=== PATIENT | male | born 1980 | race Caucasian/White ===

== ENCOUNTER 2016-10-21 18:50 | Emergency (ER) | payer BC ==
[~2016-10-21] VITALS: Ht 177.8 cm; Wt 63.5 kg
[~2016-10-21 18:50] MED LIST: COLACE100 MG PO; MIRALAX17 GM PO; PHENERGAN 25 MG25 M1 PO; TRAMADOL 50 MG50 MG PO
[2016-10-21] MEDS ORDERED: ADDERALL 5 MG TA5 M1 PO (18:56)
[2016-10-21] MEDS ORDERED: FLEXERIL PO (20:08)
[2016-10-21] MEDS ORDERED: PREDNISONE 20 M20 MG PO (20:08)
[2016-10-21] MEDS ORDERED: NORCO 5-325 TA1 EACH PO (20:13)
[2016-10-21 20:25] VITALS: BP 138/85
== END 2016-10-21 20:26 | disposition home or self-care (01) ==
LOC: ER 18:50
DX: M54.5 Low back pain (principal); Z88.1 Allergy status to other antibiotic agents; Z88.5 Allergy status to narcotic agent; Z88.8 Allergy status to other drugs, medicaments and biological substances; F17.210 Nicotine dependence, cigarettes, uncomplicated

== ENCOUNTER 2017-10-12 22:51 | Emergency (ER) | payer BC ==
[~2017-10-12] VITALS: Ht 177.8 cm; Wt 63.5 kg
[~2017-10-12 22:51] MED LIST changes: +ADDERALL 5 MG TA5 M1 PO; +FLEXERIL PO; +NORCO 5-325 TA1 EACH PO; +PREDNISONE 20 M20 MG PO; +ULTRAM 50MG TAB50 MG PO; +XANAX 0.25 MG0.25 MG PO
[2017-10-12 23:41] LABS: URINE BILIRUBIN NEGATIVE (Negative); URINE BLOOD NEGATIVE (Negative); URINE COLOR YELLOW; URINE GLUCOSE-RANDOM* NEGATIVE (Negative); URINE KETONES NEGATIVE (Negative); URINE LEUKOCYTES-REFLEX NEGATIVE (Negative); URINE PROTEIN (DIPSTICK) NEGATIVE (Negative); URINE UROBILINOGEN 0.2 E.U./dl (0.2-1.0)
[2017-10-12 23:51] LABS: AMP/METHAMP POSITIVE (Negative); BARBITURATES Negative (Negative); BENZODIAZEPINES POSITIVE (Negative); COCAINE Negative (Negative); METHADONE Negative (Negative); OPIATES Negative (Negative); PCP Negative (Negative)
[2017-10-12] MEDS ORDERED: NORCO 5-325 TA1 EACH PO (23:57)
[2017-10-12] MEDS ORDERED: CIPROFLOXACIN500 M1 PO (23:57)
[2017-10-13 00:11] VITALS: BP 130/83
== END 2017-10-13 00:22 | disposition home or self-care (01) ==
LOC: ER 22:51
PROVIDERS: Emergency Medicine
DX: N50.812 Left testicular pain (principal); R10.32 Left lower quadrant pain; F17.210 Nicotine dependence, cigarettes, uncomplicated; Z88.6 Allergy status to analgesic agent; Z88.5 Allergy status to narcotic agent; Z88.8 Allergy status to other drugs, medicaments and biological substances

== ENCOUNTER 2017-11-13 23:52 | Emergency (ER) | payer OTHER ==
[~2017-11-13] VITALS: Ht 177.8 cm; Wt 63.5 kg
--- NOTE | ~2017-11-13 | EKG ---
[place] [address] 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 Pipe: naeem : 1980 Requested By: Jevon Stringer Order Number: [id number] MD: Chris Seo Measurements Intervals [place] Rate: 57 P: 75 WI: 127 QRS: 92 QRSD: 99 T: 75 QT: 429 QTc: 418 Interpretive Statements Sinus rhythm Borderline right axis deviation Baseline wander in lead(s) V2 No previous ECG available for comparison Electronically Signed On 11-14-2017 9:11:50 [employer] by Chris Seo [email or web address] <ELECTRONICALLY SIGNED> By: Chris Seo MD, [facility] 11/14/17 0911 [id number] Chris Seo MD, FACC /EPI
[~2017-11-13 23:52] MED LIST changes: +CIPROFLOXACIN500 M1 PO
[2017-11-14 01:31] LABS: ABSOLUTE NEUTROPHILS 2.7 thou/uL (1.4-8.2); BASOPHILS 0.6 % (0.0-2.0); EOSINOPHILS 4.3 % (0.0-3.0); HEMATOCRIT 40.3 % (42.0-52.0); HEMOGLOBIN 13.9 gm/dL (14.0-18.0); MCH 32.7 pg (26.0-34.0); MCHC 34.5 g/dL (28.0-37.0); MONOCYTES 10.1 % (1.0-8.0); PLATELET COUNT 270 thou/uL (150-400); RBC 4.24 mil/uL (4.50-6.00); WBC 5.7 thou/uL (4.0-11.0)
[2017-11-14 01:33] LABS: CALCIUM 9.2 mg/dL (8.5-10.1); CREATININE 0.9 mg/dL (0.7-1.3); POTASSIUM 3.4 mmol/L (3.5-5.1)
[2017-11-14 01:37] LABS: URINE BILIRUBIN NEGATIVE (Negative); URINE BLOOD NEGATIVE (Negative); URINE CLARITY CLEAR; URINE COLOR YELLOW; URINE GLUCOSE-RANDOM* NEGATIVE (Negative); URINE KETONES NEGATIVE (Negative); URINE LEUKOCYTES-REFLEX NEGATIVE (Negative); URINE NITRITE-REFLEX NEGATIVE (Negative); URINE PROTEIN (DIPSTICK) NEGATIVE (Negative); URINE UROBILINOGEN 0.2 E.U./dl (0.2-1.0)
== END 2017-11-14 03:29 | disposition home or self-care (01) ==
LOC: ER 23:52
PROVIDERS: Emergency Medicine
DX: R51 Headache (principal); R03.0 Elevated blood-pressure reading, without diagnosis of hypertension; F17.210 Nicotine dependence, cigarettes, uncomplicated; Z88.5 Allergy status to narcotic agent; Z88.6 Allergy status to analgesic agent

== ENCOUNTER 2017-12-29 15:23 | Emergency (ER) | payer OTHER ==
[~2017-12-29] VITALS: Ht 177.8 cm; Wt 63.5 kg
[2017-12-29 16:01] LABS: URINE BILIRUBIN NEGATIVE (Negative); URINE BLOOD NEGATIVE (Negative); URINE CLARITY CLEAR; URINE COLOR YELLOW; URINE GLUCOSE-RANDOM* NEGATIVE (Negative); URINE KETONES NEGATIVE (Negative); URINE LEUKOCYTES-REFLEX NEGATIVE (Negative); URINE NITRITE-REFLEX NEGATIVE (Negative); URINE PROTEIN (DIPSTICK) NEGATIVE (Negative); URINE SPECIFIC GRAVITY <= 1.005 (1.005-1.035); URINE UROBILINOGEN 0.2 E.U./dl (0.2-1.0)
[2017-12-29 16:03] LABS: ABSOLUTE NEUTROPHILS 2.8 thou/uL (1.4-8.2); BASOPHILS 1.2 % (0.0-2.0); EOSINOPHILS 4.5 % (0.0-3.0); HEMATOCRIT 38.2 % (42.0-52.0); HEMOGLOBIN 13.2 gm/dL (14.0-18.0); LYMPHOCYTES 35.9 % (24.0-44.0); MCHC 34.5 g/dL (28.0-37.0); MCV 95.5 fL (80.0-100.0); PLATELET COUNT 288 thou/uL (150-400); POLYS 49.4 % (36.0-66.0); RDW 13.5 % (10.5-14.5); WBC 5.6 thou/uL (4.0-11.0)
[2017-12-29 16:15] LABS: CALCIUM 8.8 mg/dL (8.5-10.1); POTASSIUM 3.1 mmol/L (3.5-5.1)
[2017-12-29 16:22] LABS: ALBUMIN 3.6 g/dL (3.4-5.0); TOTAL BILIRUBIN 0.4 mg/dL (<0.1-1.0); TOTAL PROTEIN 6.4 g/dL (6.4-8.2)
== END 2017-12-29 17:50 | disposition home or self-care (01) ==
LOC: ER 15:23
PROVIDERS: Emergency Medicine
DX: R10.32 Left lower quadrant pain (principal); F17.210 Nicotine dependence, cigarettes, uncomplicated; Z88.5 Allergy status to narcotic agent; Z88.1 Allergy status to other antibiotic agents; Z88.8 Allergy status to other drugs, medicaments and biological substances; Z88.6 Allergy status to analgesic agent